=== PATIENT | male | born 1955 | race Caucasian/White ===

== ENCOUNTER 2019-09-23 05:53 | Day surgery (SDC) | payer MEDICARE, OTHER ==
[~2019-09-23] VITALS: Ht 170.2 cm; Wt 73.6 kg
[~2019-09-23 05:53] MED LIST: CIPR-245 PO; LOSA50TA65 PO; METF-444 PO; MONT10TA26 PO; PRED10TA3 PO
[2019-09-23] MEDS ORDERED: BENZOCAINE 20% 50 MCG/SPRAY 57 GM TP ONE (05:54)
[2019-09-23] MEDS ORDERED: ALBUTEROL SULFATE 2.5 MG/0.5 ML NEB SOLUTION NEB ONE (05:54)
[2019-09-23] MEDS ORDERED: LIDOCAINE 2% 30 ML JELLY TP ONE (05:54)
[2019-09-23] MEDS ORDERED: LIDOCAINE 4% 50 ML SOLUTION TP ONE (05:54)
[2019-09-23] MEDS ORDERED: SODIUM CHLORIDE 0.9% 1,000 ML ONE (05:59)
[2019-09-23 06:53] LABS: GLUCOMETER DEV NAME(LOC) SDS.; GLUCOSE,POINT OF CARE 131 MG/DL (70-110)
[2019-09-23] MEDS ORDERED: ASPI-1111 PO (06:53)
[2019-09-23] MEDS ORDERED: LOSA100T58 PO (06:53)
[2019-09-23] MEDS ORDERED: FLUT16H NS (06:53)
[2019-09-23] MEDS ORDERED: ALBU8HFA IH (06:57)
[2019-09-23] MEDS ORDERED: BUDE10.26 IH (06:57)
[2019-09-23] MEDS ORDERED: OMEP20CA12 PO (06:57)
[2019-09-23] MEDS ORDERED: POLY250020 PO (06:57)
[2019-09-23] MEDS ORDERED: ATEN100T PO (06:57)
[2019-09-23] MEDS ORDERED: ATOR20TA65 PO (06:57)
[2019-09-23] MEDS ORDERED: CITA10TA68 PO (06:57)
[2019-09-23] MEDS ORDERED: SODIUM CHLORIDE 0.9% 1,000 ML IV ONE (07:00)
[2019-09-23] MEDS ORDERED: FentaNYL CITRATE-PF 100 MCG/2 ML VIAL ONE (07:03)
[2019-09-23] MEDS ORDERED: MIDAZOLAM HCL 2 MG/2 ML VIAL ONE (07:03)
[2019-09-23] MEDS ORDERED: MethylPREDNISolone SOD SUCC 125 MG/2 ML VIAL IVP ONE (09:00)
[2019-09-23] MEDS ORDERED: MethylPREDNISolone SOD SUCC 125 MG/2 ML VIAL ONE (09:23)
[2019-09-23] MEDS ORDERED: OXYGEN THERAPY IH SCH (20:00)
== END 2019-09-23 10:30 | disposition home or self-care (01) ==
LOC: SURGERY 05:53
PROVIDERS: ATTEND Internal Medicine Critical Care Medicine
DX: R05 Cough (principal); R91.1 Solitary pulmonary nodule; J34.89 Other specified disorders of nose and nasal sinuses; J98.8 Other specified respiratory disorders; J38.4 Edema of larynx; B37.0 Candidal stomatitis; E11.9 Type 2 diabetes mellitus without complications; I10 Essential (primary) hypertension; E78.00 Pure hypercholesterolemia, unspecified; J45.909 Unspecified asthma, uncomplicated; Z72.89 Other problems related to lifestyle; Z98.890 Other specified postprocedural states; Z79.899 Other long term (current) drug therapy; R19.09 Other intra-abdominal and pelvic swelling, mass and lump
CPT/HCPCS: 31623; 31624; 71045; 82962; 87070; 87101; 87206; 87220; 88184; 88185; J2250; J2930; J3010; J7030; 87015; 87205; 88108; 88312

== ENCOUNTER 2020-10-07 06:34 | Day surgery (SDC) | payer MEDICARE, OTHER ==
[2020-10-05 17:31] LABS: COVID AG,FIA SOURCE NASOPHARYNGEAL
[~2020-10-07] VITALS: Ht 177.8 cm; Wt 77.3 kg
[~2020-10-07 06:34] MED LIST changes: +ALBU8HFA IH; +ASPI-1444 PO; +ATEN100T92 PO; +ATOR20TA65 PO; +BUDE10.26 IH; -CIPR-245 PO; +CITA10TA99 PO; +FLUT16H NS; +LOSA100T58 PO; -LOSA50TA65 PO; -MONT10TA26 PO; +MONT10TA32 PO; +OMEP20CA12 PO; +POLY250020 PO; -PRED10TA3 PO; +SODIUM CHLORIDE 0.9% 1,000 ML IV ONE; +SODIUM CHLORIDE 0.9% 1,000 ML ONE
[2020-10-07] MEDS ORDERED: LIDOCAINE 4% 50 ML SOLUTION TP ONE (06:35)
[2020-10-07] MEDS ORDERED: ALBUTEROL SULFATE 2.5 MG/0.5 ML NEB SOLUTION NEB ONE (06:35)
[2020-10-07] MEDS ORDERED: LIDOCAINE 2% 30 ML JELLY TP ONE (06:35)
[2020-10-07] MEDS ORDERED: BENZOCAINE 20% 50 MCG/SPRAY 57 GM TP ONE (06:35)
[2020-10-07] MEDS ORDERED: FentaNYL CITRATE PF 100 MCG/2 ML VIAL ONE (07:47)
[2020-10-07] MEDS ORDERED: MIDAZOLAM HCL 2 MG/2 ML VIAL ONE (07:47)
[2020-10-07 07:56] LABS: GLUCOMETER DEV NAME(LOC) SDS.; GLUCOSE,POINT OF CARE 151 MG/DL (70-110)
[2020-10-07] MEDS ORDERED: MethylPREDNISolone SOD SUCC 125 MG/2 ML VIAL IVP ONE (09:00)
[2020-10-07] MEDS ORDERED: MethylPREDNISolone SOD SUCC 125 MG/2 ML VIAL ONE (09:20)
[2020-10-07] MEDS ORDERED: OXYGEN THERAPY IH SCH (20:00)
== END 2020-10-07 11:15 | disposition home or self-care (01) ==
LOC: SURGERY 06:34
PROVIDERS: ATTEND Internal Medicine Critical Care Medicine
DX: J38.4 Edema of larynx (principal); B37.0 Candidal stomatitis
CPT/HCPCS: 31623; 31624; 71045; 82962; 87070; 87101; 87206; 87220; 87426; 88184; 88185; C9803; J2250; J2930; J3010; J7030; 87015; J7613; Z7610